=== PATIENT | male | born 1965 | race Caucasian/White ===

== ENCOUNTER 2019-02-04 07:19 | Emergency (ER) | payer BC, OTHER ==
[2019-02-04 07:26] VITALS: RESP 16
[2019-02-04] MEDS ORDERED: amLODIPine 5 MG TAB PO STA (08:04)
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
[2019-02-04 08:26] VITALS: TEMP 98
[2019-02-04 09:22] VITALS: BP 181/109; PULSE 61
== END 2019-02-04 09:45 | disposition home or self-care (01) ==
LOC: EC 07:19
DX: H83.09 Labyrinthitis, unspecified ear (principal); J01.90 Acute sinusitis, unspecified; H61.21 Impacted cerumen, right ear; H55.00 Unspecified nystagmus; I10 Essential (primary) hypertension; Z79.899 Other long term (current) drug therapy
CPT/HCPCS: 99284

== ENCOUNTER 2019-06-05 23:44 | Inpatient (IN) | payer BC, OTHER ==
[2019-06-06] MEDS ORDERED: NITROGLYCERIN SL TABS 0.4 MG TAB SUBLINGUAL STA (00:04)
[2019-06-06] MEDS ORDERED: HEPARIN SODIUM,PORCINE 5,000 UNIT/ML 1 ML VIAL IV PRN (00:04)
[2019-06-06] MEDS ORDERED: HEPARIN SODIUM,PORCINE 5,000 UNIT/ML 1 ML VIAL IV ONE (00:04)
[2019-06-06] MEDS ORDERED: ASPIRIN 81 MG PO STA (00:04)
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
[2019-06-06] MEDS ORDERED: HEPARIN SOD,PORK IN 0.45% NACL 25,000 UNIT in 0.45% NACL 1 250ML.BAG IV SCH (00:15)
[2019-06-06 00:17] LABS: Basophils # (A) 0.1 k/uL (0-0.2); Basophils % (A) 1 %; Eosinophils # (A) 0.1 k/uL (0-0.7); Eosinophils % (A) 1 %; HCT 45.5 % (39.0-53.0); HGB 15.4 gm/dL (13.0-17.5); Lymphocytes # (A) 2.6 k/uL (1.0-4.8); Lymphocytes % (A) 25 %; MCH 31.8 pg (25.0-35.0); MCHC 33.8 g/dL (31.0-37.0); MCV 94.1 fL (80.0-100.0); Mean Platelet Volume 7.7; Monocytes # (A) 0.8 k/uL (0-1.0); Monocytes % (A) 7 %; Neutrophils # (A) 6.6 k/uL (1.3-7.7); Neutrophils % (A) 63 %; Platelet Count 237 k/uL (150-450); RBC 4.83 m/uL (4.30-5.90); RDW 14.4 % (11.5-15.5); WBC 10.4 k/uL (3.8-10.6)
[2019-06-06 00:30] LABS: Albumin 4.2 g/dL (3.5-5.0); Calcium 9.5 mg/dL (8.4-10.2); Magnesium 2.1 mg/dL (1.6-2.3); Potassium 4.2 mmol/L (3.5-5.1); Total Bilirubin 0.6 mg/dL (0.2-1.3); Total Protein 6.9 g/dL (6.3-8.2)
[2019-06-06 00:33] LABS: D-Dimer <0.17 mg/L FEU (<0.60); INR 0.9 (<1.2); Partial Thromboplastin Time 24.8 sec (22.0-30.0); Prothrombin Time 9.6 sec (9.0-12.0)
[2019-06-06] MEDS ORDERED: NITROGLYCERIN-D5W PMX 50 MG in DEXTROSE/WATER 1 250ML.BAG IV ONE (00:39)
[2019-06-06] MEDS ORDERED: LOSARTAN 50 MG TAB PO STA ×2 (00:41→02:04)
[2019-06-06] MEDS ORDERED: METOPROLOL TARTRATE 25 MG TAB PO STA (00:41)
--- NOTE | 2019-06-06 00:49 | XR ---
EXAM: XR Chest, 1 View CLINICAL HISTORY: ITS.REASON XR Reason: Chest Pain TECHNIQUE: Frontal view of the chest. COMPARISON: Chest radiographs 11/28/2015. FINDINGS: Lungs: Unremarkable. No consolidation. Pleural space: Unremarkable. No pneumothorax. Heart: Unremarkable. No cardiomegaly. Mediastinum: Unremarkable. Bones/joints: Unremarkable. IMPRESSION: No acute cardiopulmonary abnormality.
[2019-06-06 01:48] LABS: Glucose,Whole Blood 110 mg/dL (75-99)
[2019-06-06] MEDS ORDERED: NITROGLYCERIN-D5W PMX 50 MG in DEXTROSE/WATER 1 250ML.BAG IV SCH (02:15)
[2019-06-06 02:42] VITALS: BMI 26.2
[2019-06-06] MEDS: SODIUM CHLORIDE 0.9% 1,000 ML IV SCH (05:18)
[2019-06-06 05:35] LABS: Basophils # (A) 0.1 k/uL (0-0.2); Basophils % (A) 1 %; Eosinophils # (A) 0.1 k/uL (0-0.7); Eosinophils % (A) 1 %; HCT 43.3 % (39.0-53.0); HGB 14.5 gm/dL (13.0-17.5); Lymphocytes % (A) 26 %; MCHC 33.6 g/dL (31.0-37.0); MCV 95.5 fL (80.0-100.0); Mean Platelet Volume 7.5; Monocytes # (A) 0.6 k/uL (0-1.0); Monocytes % (A) 5 %; Neutrophils # (A) 7.6 k/uL (1.3-7.7); Neutrophils % (A) 66 %; Platelet Count 226 k/uL (150-450); RBC 4.53 m/uL (4.30-5.90); RDW 14.3 % (11.5-15.5); WBC 11.5 k/uL (3.8-10.6)
[2019-06-06 05:45] LABS: African American GFR (CKD) >90 (>60 ml/min/1.73 sqM); Anion Gap 7 mmol/L; Blood Urea Nitrogen 16 mg/dL (9-20); Calcium 8.9 mg/dL (8.4-10.2); Carbon Dioxide 27 mmol/L (22-30); Chloride 106 mmol/L (98-107); Glucose 113 mg/dL (74-99); Magnesium 2.1 mg/dL (1.6-2.3); Non-African American GFR(CKD) 78 (>60 ml/min/1.73 sqM); Phosphorus 3.9 mg/dL (2.5-4.5); Potassium 4.1 mmol/L (3.5-5.1); Sodium 140 mmol/L (137-145)
[2019-06-06] MEDS ORDERED: LOSARTAN 50 MG TAB PO SCH (09:00)
[2019-06-06] MEDS ORDERED: ASPIRIN 81 MG PO SCH (09:00)
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
[2019-06-06 09:36] LABS: Cholesterol 134 mg/dL (<200); HDL Cholesterol 44 mg/dL (40-60); LDL Cholesterol,Calculated 70 mg/dL (0-99); Triglycerides 102 mg/dL (<150)
[2019-06-06] MEDS ORDERED: TRIAMTERENE-HCTZ 37.5-25MG 1 EACH CAP PO SCH (11:30)
[2019-06-06] MEDS: IPRATROPIUM-ALBUTEROL 3 ML NEB INHALATION SCH ×3 (11:32→20:17)
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
--- NOTE | 2019-06-06 15:00 | ECHOF ---
Referral Reason:chest pain MEASUREMENTS -------- HEIGHT: 200.7 cm WEIGHT: 80.7 kg BP: IVSd: 1.5 cm (0.6 - 1.1) LVIDd: 2.8 cm (3.9 - 5.3) LVPWd: 1.8 cm (0.6 - 1.1) IVSs: 2.0 cm LVIDs: 2.2 cm LVPWs: 2.1 cm RVIDd: 2.6 cm (< 3.3) LAESV Index (A-L): 23.93 ml/m Ao Diam: 3.4 cm (2.0 - 3.7) LA Diam: 2.7 cm (2.7 - 3.8) AV Cusp: 2.2 cm (1.5 - 2.6) EPSS: 0.4 cm MV E Andrea: 0.94 m/s MV DecT: 159 ms MV A Andrea: 0.65 m/s MV E/A Ratio: 1.44 RAP: 5.00 mmHg RVSP: 36.03 mmHg MV EF SLOPE: 93.52 mm/s (70 - 150) MV EXCURSION: 15.29 mm (> 18.000) FINDINGS -------- Sinus rhythm. This was a technically good study. The left ventricular size is normal. There is severe concentric left ventricular hypertrophy. Ove rall left ventricular systolic function is normal with, an EF between 55 - 60 %. The right ventricle is normal in size. The left atrial size is normal. Normal LA size by volume 22+/-6 ml/m2. The right atrial size is normal. Interatrial and interventricular septum intact. The aortic valve is trileaflet and appears structurally normal. The mitral valve is normal. The mitral valve leaflets are mildly thickened. Mild mitral annular c alcification present. Mild mitral regurgitation is present. Mild tricuspid regurgitation present. There is borderline pulmonary artery hypertension. The righ t ventricular systolic pressure, as measured by Doppler, is 36.03mmHg. There is no pulmonic regurgitation present. The aortic root size is normal. Normal inferior vena cava with normal inspiratory collapse consistent with estimated right atrial pre ssure of 5 mmHg. The flow patterns, measured by Doppler, appear normal. There is no pericardial effusion. CONCLUSIONS -------- 1. Sinus rhythm. 2. This was a technically good study. 3. The left ventricular size is normal. 4. There is severe concentric left ventricular hypertrophy. 5. Overall left ventricular systolic function is normal with, an EF between 55 - 60 %. 6. The right ventricle is normal in size. 7. The left atrial size is normal. 8. Normal LA size by volume 22+/-6 ml/m2. 9. The right atrial size is normal. 10. Interatrial and interventricular septum intact. 11. The aortic valve is trileaflet and appears structurally normal. 12. The mitral valve is normal. 13. The mitral valve leaflets are mildly thickened. 14. Mild mitral annular calcification present. 15. Mild mitral regurgitation is present. 16. Mild tricuspid regurgitation present. 17. There is borderline pulmonary artery hypertension. 18. The right ventricular systolic pressure, as measured by Doppler, is 36.03mmHg. 19. There is no pulmonic regurgitation present. 20. The aortic root size is normal. 21. Normal inferior vena cava with normal inspiratory collapse consistent with estimated right atrial pressure of 5 mmHg. 22. The flow patterns, measured by Doppler, appear normal. 23. There is no pericardial effusion. [employer]AIGHTENER: Jes Dunn RDCS
[2019-06-06] MEDS: NITROGLYCERIN SL TABS 0.4 MG TAB SUBLINGUAL PRN ×3 (15:12→20:59)
[2019-06-06 15:47] LABS: Amphetamine Screen,Urine Not Detected (NotDetected); Barbiturate Screen,Urine Not Detected (NotDetected); Benzodiazepines Screen,Urine Not Detected (NotDetected); Cocaine Screen,Urine Not Detected (NotDetected); Methadone Screen, Urine Not Detected (NotDetected); Opiate Screen,Urine Not Detected (NotDetected); Oxycodone Screen, Urine Not Detected (NotDetected); Phencyclidine Screen,Urine Not Detected (NotDetected); Tricyclic Antidepressant,Urine Not Detected (NotDetected); Urn Cannabinoid Scrn Detected (NotDetected)
[2019-06-06] MEDS: hydrALAZINE HCL 20 MG/ML 1 ML VIAL IVP PRN (21:10)
[2019-06-06 21:24] VITALS: RESP 18
[2019-06-06] MEDS ORDERED: MELATONIN 3 MG TABLET PO SCH (21:30)
[2019-06-07] MEDS: hydrALAZINE HCL 20 MG/ML 1 ML VIAL IVP PRN (04:45)
[2019-06-07 04:51] VITALS: BP 178/101; PULSE 85; TEMP 98.5
[2019-06-07] MEDS: SODIUM CHLORIDE 0.9% 1,000 ML IV SCH (04:52)
[2019-06-07 06:21] LABS: Basophils # (A) 0.1 k/uL (0-0.2); Basophils % (A) 1 %; Eosinophils # (A) 0.1 k/uL (0-0.7); Eosinophils % (A) 1 %; HCT 51.7 % (39.0-53.0); HGB 17.3 gm/dL (13.0-17.5); Lymphocytes % (A) 23 %; MCH 31.7 pg (25.0-35.0); MCHC 33.5 g/dL (31.0-37.0); MCV 94.7 fL (80.0-100.0); Mean Platelet Volume 7.2; Monocytes # (A) 0.7 k/uL (0-1.0); Monocytes % (A) 8 %; Neutrophils # (A) 5.8 k/uL (1.3-7.7); Neutrophils % (A) 65 %; Platelet Count 257 k/uL (150-450); RBC 5.46 m/uL (4.30-5.90); RDW 12.5 % (11.5-15.5); WBC 8.9 k/uL (3.8-10.6)
[2019-06-07 06:38] LABS: Calcium 9.8 mg/dL (8.4-10.2); Potassium 4.4 mmol/L (3.5-5.1)
[2019-06-07] MEDS ORDERED: ASPIRIN 325 MG TAB PO SCH (09:00)
[2019-06-07 11:59] LABS: Hemoglobin A1C 5.6 % (4.0-6.0)
== END 2019-06-07 08:04 | disposition left against medical advice (07) | DRG 305 ==
LOC: EC 23:44 → 2SICU 06-06 00:52 → 3SCARD 06-06 16:42
PROVIDERS: ADMIT Hospitalist; ATTEND Hospitalist
DX: I16.0 Hypertensive urgency (principal); J44.1 Chronic obstructive pulmonary disease with (acute) exacerbation; F32.9 Major depressive disorder, single episode, unspecified; F90.9 Attention-deficit hyperactivity disorder, unspecified type; F17.210 Nicotine dependence, cigarettes, uncomplicated; E66.9 Obesity, unspecified; I10 Essential (primary) hypertension; Z77.090 Contact with and (suspected) exposure to asbestos; Z68.26 Body mass index [BMI] 26.0-26.9, adult; Z71.6 Tobacco abuse counseling; Z86.69 Personal history of other diseases of the nervous system and sense organs; Z91.14 Patient's other noncompliance with medication regimen; Z91.11 Patient's noncompliance with dietary regimen; Z86.14 Personal history of Methicillin resistant Staphylococcus aureus infection; Z79.899 Other long term (current) drug therapy
CPT/HCPCS: 36415; 71045; 80048; 80053; 80061; 80306; 82533; 83036; 83735; 84100; 84484; 85025; 85379; 85610; 85730; 93005; 93306; 94640; 96365; 96376; 99291

== ENCOUNTER 2019-12-19 05:20 | Emergency (ER) | payer BC ==
[2019-12-19 05:28] VITALS: TEMP 97.3
[2019-12-19] MEDS ORDERED: KETOROLAC 30 MG/ML 1 ML VIAL IVP STA (05:41)
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
[2019-12-19] MEDS ORDERED: ONDANSETRON 4 MG/2 ML VIAL IVP STA (05:46)
[2019-12-19] MEDS ORDERED: MORPHINE SULFATE 4 MG/ML SYRINGE IVP STA (05:47)
[2019-12-19 05:54] LABS: Appearance,Urine Cloudy (Clear); Bilirubin,Urine Negative (Negative); Blood,Urine Moderate (Negative); Budding Yeast,Urine Few /hpf; Color,Urine Light Yellow; Glucose,Urine (UA) Negative (Negative); Ketones,Urine Negative (Negative); Leukocyte Esterase,Urine Negative (Negative); Mucus,Urine Rare /hpf; Nitrite,Urine Negative (Negative); Protein,Urine Negative (Negative); RBC,Urine 139 /hpf (0-5); Urobilinogen,Urine <2.0 mg/dL (<2.0); WBC,Urine 2 /hpf (0-5)
[2019-12-19 06:11] VITALS: RESP 18
[2019-12-19 06:14] LABS: Calcium 9.1 mg/dL (8.4-10.2); Total Bilirubin 0.9 mg/dL (0.2-1.3)
[2019-12-19 06:16] LABS: Basophils % (A) 0 %; Eosinophils # (A) 0.1 k/uL (0-0.7); Eosinophils % (A) 1 %; HCT 45.8 % (39.0-53.0); HGB 15.5 gm/dL (13.0-17.5); Lymphocytes # (A) 2.6 k/uL (1.0-4.8); Lymphocytes % (A) 27 %; MCH 30.9 pg (25.0-35.0); MCHC 33.9 g/dL (31.0-37.0); MCV 91.4 fL (80.0-100.0); Mean Platelet Volume 7.9; Monocytes # (A) 0.6 k/uL (0-1.0); Monocytes % (A) 6 %; Neutrophils # (A) 6.1 k/uL (1.3-7.7); Neutrophils % (A) 63 %; Platelet Count 238 k/uL (150-450); RBC 5.02 m/uL (4.30-5.90); RDW 12.2 % (11.5-15.5); WBC 9.8 k/uL (3.8-10.6)
[2019-12-19 06:19] LABS: Albumin 4.4 g/dL (3.5-5.0); Potassium 4.6 mmol/L (3.5-5.1); Total Protein 7.3 g/dL (6.3-8.2)
[2019-12-19 06:34] VITALS: PULSE 68
[2019-12-19 06:47] VITALS: BP 154/108
== END 2019-12-19 07:00 | disposition home or self-care (01) ==
LOC: EC 05:20
DX: R31.0 Gross hematuria (principal); R10.2 Pelvic and perineal pain; R35.0 Frequency of micturition; R39.15 Urgency of urination; R11.2 Nausea with vomiting, unspecified; F17.200 Nicotine dependence, unspecified, uncomplicated
CPT/HCPCS: 36415; 80053; 85025; 81001; 99283; 96374; 96375 ×2; J2270; J2405; J1885

== ENCOUNTER → 2023-03-19 | Outpatient (CLI) | payer OTHER ==
--- NOTE | 2023-03-19 15:06 | US ---
EXAMINATION TYPE: US scrotum with doppler. TECHNIQUE: Grayscale and color Doppler Duplex imaging performed of the scrotum. DATE OF EXAM: 03/19/2023 COMPARISON: NONE CLINICAL INDICATION: Male, 57 years old with history of S30.853A SUPERFICIAL FOREIGN BODY OF SCROTUM AND T; Right groin/lateral to teste palpable. No pain. EXAM MEASUREMENTS: TESTICLES: Right Testicle: 4.0 x 4.3 x 2.5 cm Left Testicle: 3.8 x 3.1 x 2.5 cm EPIDIDYMIS HEAD: Right Epididymis: 0.8 x 0.9 x 1.0 cm Left Epididymis: 0.9 x 0.8 x 1.3 cm with epididymal head cysts measuring up to 9 mm. Doppler performed to assess for testicular vascularity; good bilateral color flow and waveforms are s een. There is no evidence of testicular torsion. Presence of hydroceles: Small bilaterally. Patients palpable area seen. Superficial hypoechoic nonvascular lesion and just deep to the skin art face measuring = 0.8 x 0.8 x 0.3 cm. IMPRESSION: 1. Palpable area along the right side of the scrotum corresponds to a vague 8 mm hypoechoic lesion at and just deep to the skin layer. Possible cutaneous lesion or granuloma. It does not appear to local ize to the epididymis, testicle, or deeper structures. Recommend clinical follow-up. Repeat ultrasoun d if any continued growth. 2. No evidence for testicular torsion or epididymoorchitis. Small bilateral hydroceles.
== END | disposition home or self-care (01) ==
LOC: RADUSWWP 08:18
DX: S30.853A Superficial foreign body of scrotum and testes, initial encounter (principal); N43.3 Hydrocele, unspecified
CPT/HCPCS: 76870; 93975

== ENCOUNTER → 2023-04-30 | Outpatient (CLI) | payer OTHER ==
--- NOTE | 2023-04-30 21:04 | CT ---
EXAMINATION TYPE: CT chest wo con CT DLP: 375.8 mGycm, Automated exposure control for dose reduction was used. DATE OF EXAM: 04/30/2023 5:33 PM COMPARISON: Chest radiograph 06/06/20202018. CLINICAL INDICATION:Male, 57 years old with history of R91.8; PHH, Unspecified abnormality on lung. TECHNIQUE: Multiple axial images were obtained through the chest. Sagittal and coronal reformats were created for review. Contrast used: mL of (None if empty) Oral contrast used: (None if empty) FINDINGS: LUNGS/ PLEURA: Mild paraseptal emphysema changes most pronounced in the lung apices. There is no evid ence of focal consolidation, pneumothorax or pleural effusion. No suspicious pulmonary nodules are id entified. No evidence for honeycombing. No evidence for air trapping. AIRWAY: No bronchiectasis or bronchial wall thickening. HEART: Size within normal limits. Mild coronary artery calcifications. MEDIASTINUM: No gross evidence of adenopathy. VASCULATURE: No aortic aneurysm. MUSCULOSKELETAL: No acute osseous abnormalities SOFT TISSUES/LYMPH NODES: Unremarkable. LOWER NECK: No significant findings. UPPER ABDOMEN: No significant findings. IMPRESSION: 1. No specific abnormality of the lung was specified. 2. No evidence for acute process. 3. No lymphadenopathy. 4. No pulmonary mass. 5. No suspicious pulmonary nodule. 6. Mild emphysema. 7. Mild coronary artery calcifications.
== END | disposition home or self-care (01) ==
LOC: RADCTMAIN 16:39
DX: J43.9 Emphysema, unspecified (principal); I25.10 Atherosclerotic heart disease of native coronary artery without angina pectoris; R91.8 Other nonspecific abnormal finding of lung field
CPT/HCPCS: 71250

== ENCOUNTER → 2023-05-19 | Outpatient (CLI) | payer OTHER ==
--- NOTE | 2023-05-20 10:46 | CT ---
EXAMINATION TYPE: CT chest w con CT DLP: 371.9 mGycm, Automated exposure control for dose reduction was used. DATE OF EXAM: 05/19/2023 5:05 PM COMPARISON: CT chest 04/30/2023 CLINICAL INDICATION:Male, 57 years old with history of R91.8 OTHER NONSPECIFIC ABNORMAL FINDING OF REED NG F; PHH, left lung nodule f/u TECHNIQUE: Multiple axial images were obtained through the chest following the administration of 100 cc of Isovue 300. . MIP was performed. Coronal and sagittal reformats reviewed. FINDINGS: LUNGS/ PLEURA: No pleural effusion, pneumothorax, focal consolidation. Minimal paraseptal emphysemato us changes in the bilateral upper lobes. Stable 2 mm right upper lobe pulmonary nodule (series 4, im age 21). No new or enlarging pulmonary nodules. AIRWAY: Patent and unremarkable.. HEART: Size within normal limits. No pericardial effusion. Mild coronary artery calcifications. MEDIASTINUM: No evidence of adenopathy. VASCULATURE: No aortic aneurysm. MUSCULOSKELETAL: No acute osseous abnormalities SOFT TISSUES/LYMPH NODES: Unremarkable. LOWER NECK: No significant findings. UPPER ABDOMEN: No significant findings. IMPRESSION: 1. No acute thoracic process. 2. Stable right upper lobe 2 mm pulmonary nodule. No new or enlarging pulmonary nodules. 3. Minimal emphysematous changes.
== END | disposition home or self-care (01) ==
LOC: RADCTMAIN 16:05
DX: J43.9 Emphysema, unspecified (principal); R91.8 Other nonspecific abnormal finding of lung field; R91.1 Solitary pulmonary nodule
CPT/HCPCS: 71260; Q9967

== ENCOUNTER 2023-12-18 12:41 | Inpatient (IN) | payer OTHER ==
[~2023-12-18 12:41] MED LIST: levETIRAcetam IV 500 MG/5 ML VIAL IVP SCH
[2023-12-18] MEDS ORDERED: LORazepam 2 MG/ML INJ IV PRN ×3 (12:46)
[2023-12-18] MEDS: SODIUM CHLORIDE 0.9% 1,000 ML IV STA ×3 (13:00→17:42)
[2023-12-18] MEDS: SODIUM CHLORIDE 0.9% 500 ML 500 ML IV STA (13:00)
[2023-12-18] MEDS: THIAMINE 100 MG/ML 2 ML VIAL IM STA (13:14)
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
[2023-12-18 13:30] LABS: ALT 77 U/L (4-49); AST 40 U/L (17-59); African American GFR (CKD) 88 (>60 ml/min/1.73 sqM); Albumin 5.3 g/dL (3.5-5.0); Alcohol <10 mg/dL; Alkaline Phosphatase 90 U/L (38-126); Anion Gap 30 mmol/L; Blood Urea Nitrogen 14 mg/dL (9-20); Calcium 9.5 mg/dL (8.4-10.2); Chloride 108 mmol/L (98-107); Glucose 192 mg/dL (74-99); Lipase 251 U/L (23-300); Non-African American GFR(CKD) 76 (>60 ml/min/1.73 sqM); Phosphorus 2.4 mg/dL (2.5-4.5); Potassium 3.5 mmol/L (3.5-5.1); Sodium 147 mmol/L (137-145); Total Bilirubin 0.7 mg/dL (0.2-1.3); Total Protein 8.2 g/dL (6.3-8.2)
[2023-12-18 13:40] LABS: Basophils # (A) 0.1 k/uL (0-0.2); Basophils % (A) 0 %; Eosinophils % (A) 0 %; HCT 47.7 % (39.0-53.0); HGB 15.4 gm/dL (13.0-17.5); Lymphocytes # (A) 2.8 k/uL (1.0-4.8); Lymphocytes % (A) 15 %; MCHC 32.2 g/dL (31.0-37.0); MCV 96.2 fL (80.0-100.0); Mean Platelet Volume 8.7; Monocytes # (A) 0.8 k/uL (0-1.0); Monocytes % (A) 4 %; Neutrophils # (A) 14.4 k/uL (1.3-7.7); Neutrophils % (A) 79 %; Platelet Count 279 k/uL (150-450); RBC 4.96 m/uL (4.30-5.90); RDW 12.2 % (11.5-15.5); WBC 18.3 k/uL (3.8-10.6)
[2023-12-18 13:41] LABS: Carbon Dioxide 9 mmol/L (22-30)
[2023-12-18] MEDS: levETIRAcetam IV 2,000 MG in SODIUM CHLORIDE 0.9% 250 ML IVPB ONE (14:25)
[2023-12-18] MEDS: LORazepam 2 MG/ML INJ IV STA (14:29)
--- NOTE | 2023-12-18 16:19 | CT ---
EXAMINATION TYPE: CT brain wo con DATE OF EXAM: 12/18/2023 COMPARISON: 11/28/2015 INDICATION: ams DLP: 1138.4 mGycm, Automated exposure control for dose reduction was used. CONTRAST: None CT of the brain is performed utilizing 3 mm thick sections through the posterior fossa and 3 mm thick sections through the remaining calvarium. Study is performed within 24 hours of arrival to the hosp ital. No abnormal hyperdensity is present to suggest an acute intracranial hemorrhage. No mass lesion is evident. No acute infarcts are evident. Ventricles and sulci are appropriate for the patient age. Paranasal sinuses and mastoid air cells within the [id number] are clear. IMPRESSION: 1. No acute intracranial process. Follow-up MRI can be performed as clinically indicated.
[2023-12-18] MEDS ORDERED: NALOXONE 0.4 MG/ML 1 ML VIAL IV PRN (17:41)
[2023-12-18] MEDS ORDERED: MORPHINE SULFATE 4 MG/ML SYRINGE IV PRN (17:41)
[2023-12-18] MEDS: SODIUM CHLORIDE 0.9% 1,000 ML IV SCH (17:59)
[2023-12-18 19:33] LABS: VBG PH 7.35 (7.31-7.41)
[2023-12-18] MEDS: ONDANSETRON 4 MG/2 ML VIAL IVP PRN (20:10)
[2023-12-18] MEDS ORDERED: levETIRAcetam IV 500 MG/5 ML VIAL IVP SCH (21:00)
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
[2023-12-18] MEDS: levETIRAcetam IV 500 MG/5 ML VIAL IVP SCH (23:43)
[2023-12-19 04:53] LABS: Urine Alcohol Negative (Negative); Urine Barbiturate Negative (Negative); Urine Cocaine Negative (Negative); Urine Methadone Negative (Negative); Urine Opiates Negative (Negative); Urine Phencyclidine Negative (Negative)
[2023-12-19] MEDS: ASPIRIN 81 MG PO SCH (08:40)
[2023-12-19] MEDS: THIAMINE 100 MG TAB PO SCH (08:40)
[2023-12-19] MEDS: amLODIPine 10 MG TAB PO SCH (08:41)
[2023-12-19] MEDS: LOSARTAN 50 MG TAB PO SCH (08:41)
[2023-12-19] MEDS: METOPROLOL TARTRATE 25 MG TAB PO SCH (08:41)
[2023-12-19] MEDS: ENOXAPARIN 40 MG/0.4 ML SYRINGE SQ SCH (08:46)
[2023-12-19 08:47] LABS: ALT 24 U/L (4-49); AST 43 U/L (17-59); African American GFR (CKD) 36 (>60 ml/min/1.73 sqM); Albumin 3.6 g/dL (3.5-5.0); Alkaline Phosphatase 71 U/L (38-126); Anion Gap 6 mmol/L; Blood Urea Nitrogen 23 mg/dL (9-20); Calcium 8.8 mg/dL (8.4-10.2); Carbon Dioxide 21 mmol/L (22-30); Chloride 115 mmol/L (98-107); Glucose 117 mg/dL (74-99); Magnesium 2.4 mg/dL (1.6-2.3); Non-African American GFR(CKD) 31 (>60 ml/min/1.73 sqM); Phosphorus 3.3 mg/dL (2.5-4.5); Potassium 3.7 mmol/L (3.5-5.1); Sodium 142 mmol/L (137-145); Total Bilirubin 0.7 mg/dL (0.2-1.3)
[2023-12-19 09:01] LABS: Basophils % (A) 0 %; Eosinophils % (A) 0 %; HCT 38.6 % (39.0-53.0); Lymphocytes # (A) 1.1 k/uL (1.0-4.8); Lymphocytes % (A) 10 %; MCH 30.4 pg (25.0-35.0); MCHC 33.6 g/dL (31.0-37.0); Mean Platelet Volume 8.1; Monocytes # (A) 1.1 k/uL (0-1.0); Monocytes % (A) 10 %; Neutrophils # (A) 8.4 k/uL (1.3-7.7); Neutrophils % (A) 77 %; Platelet Count 187 k/uL (150-450); RBC 4.27 m/uL (4.30-5.90); RDW 12.4 % (11.5-15.5); WBC 10.9 k/uL (3.8-10.6)
[2023-12-19 09:06] LABS: MCV 90.6 fL (80.0-100.0)
[2023-12-19] MEDS: hydrOXYzine HCL 25 MG TAB PO SCH (09:06)
[2023-12-19] MEDS ORDERED: LORazepam 2 MG/ML INJ IV PRN (12:29)
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
--- NOTE | 2023-12-19 14:06 | P.PN ---
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 She immediately activated EMS who upon arrival noted the patient to be having multiple seizure-like episodes. Patient has no prior history of seizure and reports that he has been sober from alcohol use for the past 6 months. The patient subsequently had another seizure episode while in the emergency room for which he was given Ativan IV push. In the emergency room a CT brain was unremarkable with EKG showing sinus rhythm at [address]/T wave changes noted as reviewed by me. Laboratory evaluation was remarkable for WBC count 18.3, sodium 147, chloride 108, CO2 9, creatinine 1.08, with serum alcohol level less than 10. Patient was started on Keppra 500 mg IV BID and admitted for further workup and observation. 12/18 Patient was seen and examined with Dr. Giordano. Feeling tired but no other compliants. at bedside. Plans to obtain EEG and observe overnight. 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 and patient verbalized understanding. CBC WBC 10.9 RBC 4.27 Hct 38.6. BMP Cl 115, bicarb 21, BUN 23, Cr 2.25, glu 117. Mag 2.4. Vital signs reviewed General: non toxic, no distress, appears at stated age, normal weight Derm: no unusual rashes/lesions, warm Head: atraumatic, normocephalic, symmetric Eyes: EOMI, no lid lag, anicteric sclera ENT: Nose and ears atraumatic Neck: No cervical lymphadenopathy, trachea midline, supple Cardiovascular: S1S2 reg, no murmur Lungs: CTA bilateral, no rhonchi, no rales, no accessory muscle use Abdominal: soft, nontender to palpation, no guarding Ext: muscle strength 4 out of 5 in all 4 extremities grossly, no gross muscle atrophy, no contractures, Neuro: no gross focal neuro deficits Psych: Alert, oriented to self and place, not oriented to time Based on my assessment of this patient, this patient meets a high complexity level of care. Patient has an acute diagnosis of acute hypoxic respiratory failure secondary to subacute lung disease that poses a threat to life or bodily function. New onset seizure, with history of alcohol abuse (reports being sober for the past 6 months): Keppra 500 mg IV BID. CIWA protocol with Ativan PRN. Fall and seizure precautions. EEG pending. Neurology on board. Acute kidney injury: Check CPK levels. Obtain Renal bladder US. High anion gap metabolic acidosis, likely due to multiple seizures: Improving with IV hydration. Chronic conditions: History of CVA, hypertension CODE STATUS: FULL CODE DVT Prophylaxis: Lovenox GI Prophylaxis: Designated medical POA if patient is not able to make medical decisions for themselves: I have reviewed the following beauty consultant notes: Neuro. I have reviewed the results of the following tests: CBC, BMP. I have ordered the following tests: CPK. BMP. Renal bladder US I have discussed the care of this patient with the following independent historian: . I have independently interpreted the following test below: I have discussed the management of this patient with the following physician: Dr. Giordano. Objective - Vital Signs Vital signs: Vital Signs Temp 98.9 F 12/18/23 12:57 Pulse 77 12/19/23 08:44 Resp 18 12/19/23 08:44 BP 151/84 12/19/23 08:44 Pulse Ox 99 12/19/23 08:44 FiO2 Intake & Output 12/18/23 12/19/23 12/19/23 18:59 06:59 18:59 Weight 104.326 kg - Labs CBC & Chem 7: 12/19/23 07:56 12/19/23 07:56 Labs: Abnormal Lab Results - Last 24 Hours (Table) 12/18/23 12/19/23 12/19/23 Range/Units 19:48 07:56 07:56 WBC 10.9 H (3.8-10.6) k/uL RBC 4.27 L (4.30-5.90) m/uL Hct 38.6 L (39.0-53.0) % Neutrophils # 8.4 H (1.3-7.7) k/uL Monocytes # 1.1 H (0-1.0) k/uL Chloride 115 H (98-107) mmol/L Carbon Dioxide 21 L (22-30) mmol/L BUN 23 H (9-20) mg/dL Creatinine 2.25 H (0.66-1.25) mg/dL Glucose 117 H (74-99) mg/dL Magnesium 2.4 H (1.6-2.3) mg/dL Total Protein 6.0 L (6.3-8.2) g/dL U Cannabinoids Screen Positive A (Negative)
[2023-12-19] MEDS: HYDROcodone/APAP 10-325MG 1 EACH TAB PO PRN (14:35)
--- NOTE | 2023-12-19 14:52 | US ---
EXAMINATION TYPE: US renals and bladder DATE OF EXAM: 12/19/2023 COMPARISON: NONE CLINICAL INDICATION: Male, 58 years old with history of MAGED; MAGED EXAM MEASUREMENTS: Right Kidney: 11.6 x 3.7 x 4.6 cm Left Kidney: 11.2 x 3.6 x 5.4 cm Right Kidney: No hydronephrosis or masses seen Left Kidney: No hydronephrosis or masses seen Bladder: wnl IMPRESSION: 1. Normal renal ultrasound
[2023-12-19 16:26] LABS: Glucose,Whole Blood 136 mg/dL (70-110)
[2023-12-19] MEDS: SERTRALINE 50 MG TAB PO SCH (20:36)
[2023-12-19] MEDS: ATORVASTATIN 40 MG TAB PO SCH (20:36)
[2023-12-19] MEDS: levETIRAcetam 500 MG TAB PO SCH (20:36)
--- NOTE | 2023-12-20 02:41 | EEG ---
ELECTROENCEPHALOGRAM REPORT CLINICAL HISTORY: This is a 58-year-old gentleman who presented to the emergency department because of seizure-like activity. The patient had a total of 3 seizure activity in total yesterday. The video EEG is obtained to evaluate for seizure epileptiform activity. RELEVANT MEDICATIONS: Keppra, Ativan, Valium. EEG TYPE: A routine 21-channel EEG with video EEG using the 10/20 electrode placement system. DESCRIPTION: Wakefulness and drowsiness are obtained. During awake state, the posterior-dominant rhythm consists of [id number] voltage 8.5 hertz activity that is well modulated, well sustained. There is no physiological stage 2 sleep architecture. There is no focal slowing. Interictal and ictal is none. ACTIVATION PROCEDURE: Photic stimulation did not evoke a posterior driving response. There is no abnormality during the photic stimulation. Hyperventilation is not performed. CLINICAL INTERPRETATION: This is a normal routine EEG. There is no focal slowing, epileptiform discharge, or seizure on the EEG. A normal routine EEG does not rule out underlying epilepsy. Clinical correlation is recommended. MMMIGUELITO / IJN: [id number] /
[2023-12-20 08:08] LABS: Basophils % (A) 0 %; Eosinophils # (A) 0.1 k/uL (0-0.7); Eosinophils % (A) 1 %; HCT 38.7 % (39.0-53.0); HGB 12.8 gm/dL (13.0-17.5); Lymphocytes # (A) 1.6 k/uL (1.0-4.8); Lymphocytes % (A) 16 %; MCH 30.2 pg (25.0-35.0); MCHC 33.1 g/dL (31.0-37.0); MCV 91.2 fL (80.0-100.0); Monocytes # (A) 0.8 k/uL (0-1.0); Monocytes % (A) 8 %; Neutrophils # (A) 7.4 k/uL (1.3-7.7); Neutrophils % (A) 73 %; Platelet Count 187 k/uL (150-450); RBC 4.24 m/uL (4.30-5.90); RDW 12.6 % (11.5-15.5); WBC 10.1 k/uL (3.8-10.6)
[2023-12-20 08:21] LABS: Potassium 3.5 mmol/L (3.5-5.1)
[2023-12-20 08:22] LABS: ALT 26 U/L (4-49); AST 67 U/L (17-59); African American GFR (CKD) 33 (>60 ml/min/1.73 sqM); Albumin 3.7 g/dL (3.5-5.0); Alkaline Phosphatase 64 U/L (38-126); Anion Gap 5 mmol/L; Blood Urea Nitrogen 26 mg/dL (9-20); Calcium 8.9 mg/dL (8.4-10.2); Carbon Dioxide 24 mmol/L (22-30); Chloride 111 mmol/L (98-107); Glucose 117 mg/dL (74-99); Non-African American GFR(CKD) 28 (>60 ml/min/1.73 sqM); Sodium 140 mmol/L (137-145); Total Bilirubin 0.8 mg/dL (0.2-1.3); Total Protein 6.2 g/dL (6.3-8.2)
[2023-12-20] MEDS: SODIUM CHLORIDE 0.9% 1,000 ML IV SCH (11:03)
--- NOTE | 2023-12-20 11:42 | P.PN ---
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 She immediately activated EMS who upon arrival noted the patient to be having multiple seizure-like episodes. Patient has no prior history of seizure and reports that he has been sober from alcohol use for the past 6 months. The patient subsequently had another seizure episode while in the emergency room for which he was given Ativan IV push. In the emergency room a CT brain was unremarkable with EKG showing sinus rhythm at [address]/T wave changes noted as reviewed by me. Laboratory evaluation was remarkable for WBC count 18.3, sodium 147, chloride 108, CO2 9, creatinine 1.08, with serum alcohol level less than 10. Patient was started on Keppra 500 mg IV BID and admitted for further workup and observation. 12/18 Patient was seen and examined with Dr. Giordano. Feeling tired but no other compliants. at bedside. Plans to obtain EEG and observe overnight. 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 and patient verbalized understanding. CBC WBC 10.9 RBC 4.27 Hct 38.6. BMP Cl 115, bicarb 21, BUN 23, Cr 2.25, glu 117. Mag 2.4. 12/19 Patient was seen and examined. No further seizures. reports poor oral intake. CBC Hg 12.8 Hct 38.7. BMP Cl 111, BUN 26, Cr 2.47, glu 117, AST 67, T. protein 6.2. Renal US no obstruction. CPK 426. Vital signs reviewed General: non toxic, no distress, appears at stated age, normal weight Derm: no unusual rashes/lesions, warm Head: atraumatic, normocephalic, symmetric Eyes: EOMI, no lid lag, anicteric sclera ENT: Nose and ears atraumatic Neck: No cervical lymphadenopathy, trachea midline, supple Cardiovascular: good distal perfusion in all 4 extremities Lungs: breathing comfortably, no accessory muscle use Ext: muscle strength 4 out of 5 in all 4 extremities grossly, no gross muscle atrophy, no contractures, Neuro: no gross focal neuro deficits Psych: Alert, oriented to self and place, not oriented to time Based on my assessment of this patient, this patient meets a high complexity level of care. Patient has an acute diagnosis of acute hypoxic respiratory failure secondary to subacute lung disease that poses a threat to life or bodily function. New onset seizure, with history of alcohol abuse (reports being sober for the past 6 months): Keppra 500 mg IV BID. CIWA protocol with Ativan PRN. Fall and seizure precautions. EEG pending. Neurology on board. Acute kidney injury: CPK mildly elevated. No obstruction on Renal bladder US. Ethylene glycol negative. Start NS at 130 cc/hr. High anion gap metabolic acidosis, likely due to multiple seizures: Improving with IV hydration. Ethylenel glycol, salicylates, lactic acid negative. Chronic conditions: History of CVA, hypertension CODE STATUS: FULL CODE DVT Prophylaxis: Lovenox GI Prophylaxis: Designated medical POA if patient is not able to make medical decisions for themselves: I have reviewed the following documentation consultant notes: Neuro. I have reviewed the results of the following tests: CBC, BMP, renal bladder US, CPK I have ordered the following tests: BMP I have discussed the care of this patient with the following independent historian: . I have independently interpreted the following test below: I have discussed the management of this patient with the following physician: Dr. Giordano. Objective - Vital Signs Vital signs: Vital Signs Temp 98.1 F 12/20/23 08:00 Pulse 61 12/20/23 08:00 Resp 16 12/20/23 08:00 BP 149/92 12/20/23 08:00 Pulse Ox 96 12/20/23 08:00 FiO2 Intake & Output 12/19/23 12/20/23 12/20/23 18:59 06:59 18:59 Intake Total 540 Balance 540 Weight 104.326 kg Intake: Oral 540 Other: Voiding Method Toilet Toilet Toilet Urinal Urinal Urinal # Voids 1 - Labs CBC & Chem 7: 12/20/23 07:42 12/20/23 07:42 Labs: Abnormal Lab Results - Last 24 Hours (Table) 12/19/23 12/19/23 12/20/23 Range/Units 07:56 16:25 07:42 RBC 4.24 L (4.30-5.90) m/uL Hgb 12.8 L (13.0-17.5) gm/dL Hct 38.7 L (39.0-53.0) % Chloride (98-107) mmol/L BUN (9-20) mg/dL Creatinine (0.66-1.25) mg/dL Glucose (74-99) mg/dL POC Glucose (mg/dL) 136 H (70-110) mg/dL AST (17-59) U/L Creatine Kinase 426 H (55-170) U/L Total Protein (6.3-8.2) g/dL 12/20/23 Range/Units 07:42 RBC (4.30-5.90) m/uL Hgb (13.0-17.5) gm/dL Hct (39.0-53.0) % Chloride 111 H (98-107) mmol/L BUN 26 H (9-20) mg/dL Creatinine 2.47 H (0.66-1.25) mg/dL Glucose 117 H (74-99) mg/dL POC Glucose (mg/dL) (70-110) mg/dL AST 67 H (17-59) U/L Creatine Kinase (55-170) U/L Total Protein 6.2 L (6.3-8.2) g/dL
--- NOTE | 2023-12-20 12:48 | P.PN ---
Subjective Progress Note Date: 12/20/23 I am following-up with patient and no further seizures. No new neurological issues. No side-effects from Keppra. Objective - Vital Signs Vital signs: Vital Signs Temp 98.1 F 12/20/23 08:00 Pulse 60 12/20/23 12:00 Resp 16 12/20/23 12:00 BP 151/80 12/20/23 12:00 Pulse Ox 96 12/20/23 12:00 FiO2 Intake & Output 12/19/23 12/20/23 12/20/23 18:59 06:59 18:59 Intake Total 540 Balance 540 Weight 104.326 kg Intake: Oral 540 Other: Voiding Method Toilet Toilet Toilet Urinal Urinal Urinal # Voids 1 - Exam Workup during his hospital visit consisted of: He is afebrile. Initial white blood cells 18.3K and the the repeated one tablet today is 10.9. Sodium is 147, carbon dioxide is 9, glucose is 192, phosphorus is 2.4, magnesium 2.0, AST is 48 ALT 77 Plasma lactic acid vein is 1.0 Patient repeated the phosphorus 3.3. Repeated carbon dioxide is 21. And the sodium has improved. Urine drug screen is positive for cannabinoids. Urine alcohol was less than 10. CT of the head is reported as no acute intracranial process appear follow-up MRI can be performance as clinically indicated. I personally reviewed the CT of the head and the patient does not have any acute or subacute process. Patient does have right occipital encephalomalacia. Routine EEG: Is normal. - Labs CBC & Chem 7: 12/20/23 07:42 12/20/23 07:42 Labs: Abnormal Lab Results - Last 24 Hours (Table) 12/19/23 12/19/23 12/20/23 Range/Units 07:56 16:25 07:42 RBC 4.24 L (4.30-5.90) m/uL Hgb 12.8 L (13.0-17.5) gm/dL Hct 38.7 L (39.0-53.0) % Chloride (98-107) mmol/L BUN (9-20) mg/dL Creatinine (0.66-1.25) mg/dL Glucose (74-99) mg/dL POC Glucose (mg/dL) 136 H (70-110) mg/dL AST (17-59) U/L Creatine Kinase 426 H (55-170) U/L Total Protein (6.3-8.2) g/dL 12/20/23 Range/Units 07:42 RBC (4.30-5.90) m/uL Hgb (13.0-17.5) gm/dL Hct (39.0-53.0) % Chloride 111 H (98-107) mmol/L BUN 26 H (9-20) mg/dL Creatinine 2.47 H (0.66-1.25) mg/dL Glucose 117 H (74-99) mg/dL POC Glucose (mg/dL) (70-110) mg/dL AST 67 H (17-59) U/L Creatine Kinase (55-170) U/L Total Protein 6.2 L (6.3-8.2) g/dL Assessment and Plan Assessment: This is a 58-year-old gentleman with history of stroke in January 2023 with residu al visual armendariz deficit, former alcohol use and stopped and as well January 2023 who presents because of a seizure at home. It seems he had 2 additional seizures 1 and EMS and the other one while in the ED. At home the patient the had the drooling, was unresponsive, was morning and episode lasted for 15 minutes. Seems well in the ED he had a tonic-clonic seizure-like activity lasting less than 1 minute with a tongue bite. New onset seizure and patient was in status epilepticus (has three seizure yesterday). One of the causes of new onset seizure could be due to his old stroke---no further seizures. 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 Routine EEG is normal. Consider MRI Brain as outpatient seizure protocol Seizure precautions seizure pads Placed patient on Ativan 1 mg every 4 hours when necessary for seizures Per the [facility] because of the seizures, to avoid driving for 6 month until seizure-free, avoid heights, avoids swimming unassisted or using heavy machinery. This was notified to the patient and his was at bedside. Continue his home dose of aspirin 81 mg, Lipitor former and daily at bedtime We'll defer the rest of the medical management the primary team Upon discharge the patient needs to follow-up with his neurologist as an outpatient (follows-up at [facility]) with 1-2 weeks. The plan is discussed with patient, his and primary attending. There is no further neurological work-up. Will sign off. Please reconsult if needed. Time with Patient: Less than 30
[2023-12-21 07:37] LABS: Appearance,Urine Clear (Clear); Bilirubin,Urine Negative (Negative); Blood,Urine Small (Negative); Color,Urine Colorless; Glucose,Urine (UA) Negative (Negative); Ketones,Urine Negative (Negative); Leukocyte Esterase,Urine Negative (Negative); Mucus,Urine Rare /hpf; Nitrite,Urine Negative (Negative); PH, Urine 5.5 (5.0-8.0); Protein,Urine Trace (Negative); RBC,Urine 1 /hpf (0-5); Urobilinogen,Urine <2.0 mg/dL (<2.0); WBC,Urine 3 /hpf (0-5)
[2023-12-21 10:22] LABS: African American GFR (CKD) 47 (>60 ml/min/1.73 sqM); Anion Gap 6 mmol/L; Blood Urea Nitrogen 17 mg/dL (9-20); Calcium 8.7 mg/dL (8.4-10.2); Carbon Dioxide 24 mmol/L (22-30); Chloride 112 mmol/L (98-107); Glucose 108 mg/dL (74-99); Non-African American GFR(CKD) 41 (>60 ml/min/1.73 sqM); Potassium 3.7 mmol/L (3.5-5.1); Sodium 142 mmol/L (137-145)
--- NOTE | 2023-12-21 11:59 | P.DS ---
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 She immediately activated EMS who upon arrival noted the patient to be having multiple seizure-like episodes. Patient has no prior history of seizure and reports that he has been sober from alcohol use for the past 6 months. The patient subsequently had another seizure episode while in the emergency room for which he was given Ativan IV push. In the emergency room a CT brain was unremarkable with EKG showing sinus rhythm at [address]/T wave changes noted as reviewed by me. Laboratory evaluation was remarkable for WBC count 18.3, sodium 147, chloride 108, CO2 9, creatinine 1.08, with serum alcohol level less than 10. Patient was started on Keppra 500 mg IV BID and admitted for further workup and observation. 12/18 Patient was seen and examined with Dr. Giordano. Feeling tired but no other compliants. at bedside. Plans to obtain EEG and observe overnight. 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 and patient verbalized understanding. CBC WBC 10.9 RBC 4.27 Hct 38.6. BMP Cl 115, bicarb 21, BUN 23, Cr 2.25, glu 117. Mag 2.4. 12/19 Patient was seen and examined. No further seizures. reports poor oral intake. CBC Hg 12.8 Hct 38.7. BMP Cl 111, BUN 26, Cr 2.47, glu 117, AST 67, T. protein 6.2. Renal US no obstruction. CPK 426. 12/20 Patient was seen and examined. No complaints. Cr has improved to 1.81 after hydration overnight. Plans to discharge home today on Keppra. He will follow up with his PCP and Neurologist at the [place]. Vital signs reviewed General: non toxic, no distress, appears at stated age, normal weight Derm: no unusual rashes/lesions, warm Head: atraumatic, normocephalic, symmetric Eyes: EOMI, no lid lag, anicteric sclera ENT: Nose and ears atraumatic Neck: No cervical lymphadenopathy, trachea midline, supple Cardiovascular: good distal perfusion in all 4 extremities Lungs: breathing comfortably, no accessory muscle use Ext: muscle strength 4 out of 5 in all 4 extremities grossly, no gross muscle atrophy, no contractures, Neuro: no gross focal neuro deficits Psych: Alert, oriented x 3 Discharge Diagnosis: New onset seizure, with history of alcohol abuse (reports being sober for the past 6 months) Acute kidney injury Elevated CPK High anion gap metabolic acidosis, likely due to multiple seizures Chronic conditions: History of CVA, hypertension This complex discharge took 35 minutes to complete. Patient Condition at Discharge: Stable Plan - Discharge Summary Discharge Rx Participant: No New Discharge Prescriptions: New levETIRAcetam [Keppra] 500 mg PO Q12HR #60 tab Continue Atorvastatin [Lipitor] 40 mg PO HS hydrOXYzine HCL [Atarax] 25 mg PO BID Mometasone/Formoterol [Dulera 200 Mcg-5 Mcg Inhaler] 2 puff INHALATION RT-Q12H Nitroglycerin Sl Tabs [Nitrostat] 0.4 mg SUBLINGUAL Q5M PRN PRN Reason: Chest Pain methocarbamoL [Robaxin] 250 mg PO DAILY Albuterol Inhaler [Ventolin Hfa Inhaler] 1 puff INHALATION RT-Q6H PRN PRN Reason: Shortness Of Breath amLODIPine [Norvasc] 10 mg PO DAILY Aspirin EC [Ecotrin Low Dose] 81 mg PO DAILY Losartan Potassium [Cozaar] 100 mg PO DAILY Metoprolol Tartrate [Lopressor] 25 mg PO BID Sertraline [Zoloft] 50 mg PO HS methocarbamoL [Robaxin] 500 mg PO HS Discontinued Naproxen [EC-Naprosyn] 500 mg PO BID Discharge Medication List Albuterol Inhaler [Ventolin Hfa Inhaler] 1 puff INHALATION RT-Q6H PRN 12/18/23 [History] Aspirin EC [Ecotrin Low Dose] 81 mg PO DAILY 12/18/23 [History] Atorvastatin [Lipitor] 40 mg PO HS 12/18/23 [History] Losartan Potassium [Cozaar] 100 mg PO DAILY 12/18/23 [History] Metoprolol Tartrate [Lopressor] 25 mg PO BID 12/18/23 [History] Mometasone/Formoterol [Dulera 200 Mcg-5 Mcg Inhaler] 2 puff INHALATION RT-Q12H 12/18/23 [History] Nitroglycerin Sl Tabs [Nitrostat] 0.4 mg SUBLINGUAL Q5M PRN 12/18/23 [History] Sertraline [Zoloft] 50 mg PO HS 12/18/23 [History] amLODIPine [Norvasc] 10 mg PO DAILY 12/18/23 [History] hydrOXYzine HCL [Atarax] 25 mg PO BID 12/18/23 [History] methocarbamoL [Robaxin] 250 mg PO DAILY 12/18/23 [History] methocarbamoL [Robaxin] 500 mg PO HS 12/18/23 [History] levETIRAcetam [Keppra] 500 mg PO Q12HR #60 tab 12/21/23 [Rx] Follow up Appointment(s)/Referral(s): [facility],Clinic [Primary Care Provider] - 1-2 days Patient Instructions/Handouts: Seizure/Epilepsy Discharge Instructions & Follow-Up Activity/Diet/Wound Care/Special Instructions: [facility] of [facility]. Per [place] law, you can not drive for 6 months seizure free (you will need clearance from your Neurologist) Discharge Disposition: HOME SELF-CARE
[2023-12-21 12:39] VITALS: BP 166/88; PULSE 57; RESP 16; TEMP 97.9
[2023-12-21] MEDS: levETIRAcetam 500 MG TAB PO STA (12:48)
== END 2023-12-21 13:00 | disposition home or self-care (01) | DRG 101 ==
LOC: EC 12:41 → 3SCARD 17:44
PROVIDERS: ADMIT Student in an Organized Health Care Education/Training Program; ATTEND Student in an Organized Health Care Education/Training Program
DX: G40.901 Epilepsy, unspecified, not intractable, with status epilepticus (principal); N17.9 Acute kidney failure, unspecified; E87.20 Acidosis, unspecified; F05 Delirium due to known physiological condition; H53.462 Homonymous bilateral field defects, left side; G93.89 Other specified disorders of brain; F10.11 Alcohol abuse, in remission; F32.A Depression, unspecified; I10 Essential (primary) hypertension; H54.7 Unspecified visual loss; I69.398 Other sequelae of cerebral infarction; D72.828 Other elevated white blood cell count; Z77.090 Contact with and (suspected) exposure to asbestos; Z79.82 Long term (current) use of aspirin; Z79.1 Long term (current) use of non-steroidal anti-inflammatories (NSAID); Z79.899 Other long term (current) drug therapy; Z79.51 Long term (current) use of inhaled steroids
CPT/HCPCS: 36415; 70450; 76770; 80048; 80053; 80179; 80306; 80320; 81001; 82550; 82803; 83605; 83690; 83735; 84100; 84600; 85025; 93005; 95816; 96361; 96372; 96374; 96375; 96376; 99291

== ENCOUNTER → 2024-01-07 | Outpatient (CLI) | payer OTHER ==
--- NOTE | 2024-01-13 21:55 | P.PCN ---
Date of Procedure: 01/07/24 Operative Findings: Home sleep study testing Date of services 01/07/2024 Pertinent history A very pleasant 58-year-old male to be evaluated for sleep apnea. The patient has had a stroke and extensive workup to look for causes of his underlying CVA were essentially negative. This included cardiac and neurologic workup. 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 The patient has some mild degree of hypersomnia and his Imbler score is at 3. He has quit drinking alcohol and smoking he has gained aroPertinent physical findings Height is 5 feet and 9 inches, weight is 208 pounds and a body mass index is 30.7 Technical description The [employer] apnea link system was used to complete this home sleep study. This is a type III home sleep study. The total recording duration was 12 hours. The study started at 7 1 PM and it ended at 7:01 AM. There was a total of 11 hours and 49 minutes of flow monitoring and 11 hours and 49 minutes of oxygen saturation monitoring Results The respiratory evaluation showed a total of 64 obstructive apneas and 67 obstructive hypopneas. The resulting AHI was 11 consistent with mild obstructive sleep apnea Oxygenation analysis The baseline pulse ox when awake was 96%, average pulse ox during sleep was 93% and the lowest pulse ox was 87%. The patient was able to maintain a pulse ox above 88% throughout the sleep study. Cardiac analysis The average heart rate was 58 with a minimum heart rate of 48 and a maximum heart rate of 102 Assessment Mild obstructive sleep apnea with an AHI of 11. No associated nocturnal oxygen desaturations. Chronic loud snoring Previous history of CVA, January 2023 with a negative workup. The patient is wearing a loop recorder Hypertension Mild hypersomnia with an Imbler score of 3 Plan This is a case of mild obstructive sleep apnea. This condition has no significant bearing on his cardiovascular health or condition as the patient's disease is mild in severity and there is no significant nocturnal oxygen desaturations. Will discuss findings with the patient. Will encourage weight loss. Will continue optimizing his sleep hygiene measures. CPAP therapy can be also implemented as long as the patient is willing to undertake the treatment. As stated, no major hypersomnia or sleepiness at this point in time. A final decision will be done once the results have discussed with the patient.und 20 pounds over the past year or so. There is concern for obstructive sleep apnea. My overall suspicion is low
== END ==
LOC: 3 N SLEEP 11:00
PROVIDERS: ATTEND Internal Medicine Critical Care Medicine
DX: G47.33 Obstructive sleep apnea (adult) (pediatric) (principal); G47.10 Hypersomnia, unspecified; R06.83 Snoring; I10 Essential (primary) hypertension; F17.200 Nicotine dependence, unspecified, uncomplicated; Z86.73 Personal history of transient ischemic attack (TIA), and cerebral infarction without residual deficits; Z79.899 Other long term (current) drug therapy

== ENCOUNTER → 2024-05-05 | Outpatient (CLI) | payer OTHER ==
--- NOTE | 2024-05-05 15:09 | MR ---
EXAMINATION TYPE: MR thoracic spine wo con DATE OF EXAM: 05/05/2024 COMPARISON: CT chest 05/19/2023 HISTORY: 58-year-old male Mid back pain, Fx T7-8. S22.060S WEDGE COMPRESSION FRACTURE OF T7-T8 VERTE TECHNIQUE: Multiplanar, multisequence images of the thoracic spine were obtained without IV contrast. FINDINGS: There is a superior endplate fracture of T8 with resulting anterior wedging, 40% anterior height loss . No retropulsion into the ventral spinal canal. Some of the endplate fracture line is still visualiz ed but the degree of edema suggests a more subacute injury. Some Modic type I degenerative endplate changes noted anteriorly at T8-T9. Tiny posterior disc bulges noted at T7-T8, T8-T9, and T9-T10. No large focal disc herniation or significant spinal canal stenosis. Scattered mild facet arthropathy. No significant neuroforaminal stenosis seen. Moderate spondylotic change in the visualized cervical spine with straightening of the normal cervica l lordosis and mild spinal canal stenosis C4-C5 and C6/C7. More moderate at C5-C6. The thoracic spinal cord shows normal course, caliber, and signal intensity. Conus medullaris is norm al. Remaining vertebral body height and alignment are maintained. IMPRESSION: 1. Superior endplate fracture of T8 with resultant anterior wedging with 40% anterior height loss. Th e fracture line is still visualized but the degree of edema suggests a more subacute fracture. Clinic ally correlate. No retropulsion into the spinal canal. 2. Moderate spondylitic change in the cervical spine.
--- NOTE | 2024-05-06 23:45 | BD ---
EXAMINATION TYPE: Axial Bone Density DATE OF EXAM: 05/05/2024 CLINICAL HISTORY: 58 years old Male. ICD-10 CODE: S22.060S Wedge compression fracture of t7-t8 verte bra Height: 67.2 in Weight: 199 lbs FRAX RISK QUESTIONS: Family History (Parent hip fracture): yes father History of Fracture in Adulthood: thoracic spine fx 12/13 RISK FACTORS HISTORY OF: Spine Fracture: thoracic spine fx 12/13 EXAM MEASUREMENTS: Bone mineral densitometry was performed using the [employer] System. Bone mineral density as measured about the Lumbar spine is: ----- L1-L4(G/cm2): 1.000 T Score Values are as follows: ----- L1: -1.2 ----- L2: -1.6 ----- L3: -2.3 ----- L4: -1.2 ----- L1-L4: -1.5 Z Score Values are as follows: ----- L1: -1.5 ----- L2: -2.0 ----- L3: -2.7 ----- L4: -1.6 ----- L1-L4: -1.9 Bone mineral density baseline Bone mineral density about the R hip (g/cm2): 0.922 Bone mineral density about the L hip (g/cm2): 0.918 T Score values are as follows: -----R Neck: -1.5 -----L Neck: -1.4 -----R Total: -0.7 -----L Total: -0.7 Z Score values are as follows: -----R Neck: -1.3 -----L Neck: -1.2 -----R Total: -1.1 -----L Total: -1.1 Bone mineral density baseline FRAX%s: The graph provided illustrates a 19.8% chance for a major osteoporotic fx and a 1.6% chance f or the hips probability for fx in 10 years time. IMPRESSION: Osteopenia (T Score between -2.5 and -1). There is slightly increased risk of fracture and the patient may be considered for treatment. Re-Screen 2-5 years. NOTE: T-SCORE=SD OF THE YOUNG ADULT MEAN.
== END | disposition home or self-care (01) ==
LOC: RADMRIMAIN 09:01
PROVIDERS: ATTEND Family Medicine
DX: S22.060S Wedge compression fracture of T7-T8 vertebra, sequela (principal); R60.9 Edema, unspecified; M47.812 Spondylosis without myelopathy or radiculopathy, cervical region; M85.89 Other specified disorders of bone density and structure, multiple sites
CPT/HCPCS: 72146; 77080

== ENCOUNTER 2024-05-25 16:11 | Emergency (ER) | payer OTHER ==
[2024-05-25] MEDS ORDERED: ONDANSETRON 4 MG/2 ML VIAL ONE ×2 (17:48→21:01)
[2024-05-25] MEDS ORDERED: diphenhydrAMINE ELIXIR 25 MG/10 ML CUP ONE (17:50)
[2024-05-25] MEDS ORDERED: diphenhydrAMINE 50 MG/ML 1 ML VIAL ONE ×2 (17:51→17:53)
[2024-05-25] MEDS ORDERED: LORazepam 2 MG/ML INJ ONE (17:51)
[2024-05-25] MEDS ORDERED: SODIUM CHLORIDE 0.9% 1,000 ML BAG ONE ×2 (17:57→23:59)
[2024-05-25] MEDS ORDERED: LACOSAMIDE 50 MG TABLET ONE (18:52)
[2024-05-25] MEDS ORDERED: ONDANSETRON 4 MG ODT STARTER PACK 2 TAB BTL ONE (21:43)
--- NOTE | 2024-06-22 11:49 | CT ---
"DOMI BRYAN : 1965 CT Head without contrast Study Date: 05/25/2024 7:32 PM Comparison: None available during downtime Clinical History: 58-year-old altered mental status, confusion, seizure Technique: Examination of the head was done in axial plane without intravenous contrast. Coronal rec onstruction performed. Automated exposure control for dose reduction was used. FINDINGS: There is no evidence of acute intracranial hemorrhage, acute ischemic changes, mass, mass-effect, mid line shift, or extra-axial fluid collection. There is no hydrocephalus. There is no effacement of c erebral sulci or basal subarachnoid cisterns. Wasserman-white matter distinction is preserved. There is some encephalomalacia in the inferior right occipital lobe. Leftward nasal septal deviation. Paranasal sinuses and mastoid air cells well pneumatized. Orbits and globes are intact. IMPRESSION: 1. Encephalomalacia inferior right occipital lobe. Correlate for history of prior infarct. 2. Otherwise, no acute intracranial abnormality seen. Called to Dr. Deleon, in the ER at 7:[address] Tierney Hadley "
== END 2024-05-25 21:55 | disposition home or self-care (01) ==
LOC: EC 16:11
CPT/HCPCS: 70450; 80053; 80306; 80320; 81025; 82140; 83690; 83735; 84100; 84484; 85025; 85027; 85610; 85730; 96374; 96375; 99285

== ENCOUNTER 2025-03-24 10:20 | Observation (INO) | payer OTHER ==
[2025-03-24 10:36] VITALS: TEMP 97.8
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
[2025-03-24 11:44] LABS: Basophils # (A) 0.04 10*3/uL (0.00-0.10); Basophils % (A) 0.5 %; Eosinophils # (A) 0.13 10*3/uL (0.04-0.35); Eosinophils % (A) 1.7 %; HCT 40.3 % (39.6-50.0); HGB 13.7 g/dL (13.0-17.0); Lymphocytes # (A) 1.59 10*3/uL (0.90-5.00); Lymphocytes % (A) 20.9 %; MCH 30.2 pg (27.0-32.0); MCV 88.8 fL (80.0-97.0); Mean Platelet Volume 9.8 fL (9.5-12.2); Monocytes # (A) 0.54 10*3/uL (0.20-1.00); Monocytes % (A) 7.1 %; Neutrophils # (A) 5.27 10*3/uL (1.80-7.70); Neutrophils % (A) 69.4 %; Platelet Count 286 10*3/uL (140-440); RBC 4.54 10*6/uL (4.40-5.60); RDW 12.1 % (11.5-14.5)
[2025-03-24 11:58] LABS: ALT 26 U/L (4-49); AST 27 U/L (17-59); African American GFR (CKD) 83 (>60 ml/min/1.73 sqM); Albumin 4.4 g/dL (3.5-5.0); Alkaline Phosphatase 92 U/L (38-126); Anion Gap 8 mmol/L; Blood Urea Nitrogen 18 mg/dL (9-20); Calcium 9.6 mg/dL (8.4-10.2); Carbon Dioxide 26 mmol/L (22-30); Chloride 107 mmol/L (98-107); Creatine Kinase 114 U/L (55-170); Glucose 124 mg/dL (74-99); Non-African American GFR(CKD) 72 (>60 ml/min/1.73 sqM); Potassium 4.6 mmol/L (3.5-5.1); Sodium 141 mmol/L (137-145); Total Bilirubin 0.6 mg/dL (0.2-1.3); Total Protein 7.3 g/dL (6.3-8.2)
[2025-03-24 12:17] LABS: INR 0.9 (<1.2)
--- NOTE | 2025-03-24 12:49 | CT ---
EXAMINATION TYPE: CT brain wo con DATE OF EXAM: 03/24/2025 12:01 PM COMPARISON: None. CLINICAL INDICATION: Male, 59 years old with history of Neuro deficit, acute, stroke suspected, Neuro deficit, acute stroke suspected TECHNIQUE: CT of the brain is performed utilizing 3 mm thick sections through the posterior fossa and 3 mm thick sections through the remaining calvarium. Study is performed within 24 hours of arrival to the hospital. Contrast used: mL of , (none if empty) CT DLP: 1425.2 mGycm, Automated exposure control for dose reduction was used. FINDINGS: No abnormal hyperdensity is present to suggest an acute intracranial hemorrhage. No mass lesion is evident. No acute infarcts are evident. Ventricles and sulci are appropriate for the patient age. Paranasal sinuses and mastoid air cells within the [id number] are clear. IMPRESSION: 1. No acute intracranial process. Follow up MRI can be performed as clinically indicated. [facility], , 03/24/2025 12:46 PM
--- NOTE | 2025-03-24 13:23 | CT ---
EXAMINATION TYPE: CT abdomen pelvis w con DATE OF EXAM: 03/24/2025 12:02 PM COMPARISON: None. CLINICAL INDICATION: Male, 59 years old with history of fall, r pain, Fall 03/19/2025, right sided abhay n TECHNIQUE: Axial images were obtained from above the diaphragm to the pubic rami in the axial plane a t 5 mm thick sections. Reconstructed images are reviewed on the computer in the coronal plane. CONTRAST: 35 ml mL of Isovue 370. Study performed without Oral Contrast DLP: 804.1 mGycm, Automated exposure control for dose reduction was used. FINDINGS: Limited CT sections are obtained the lung bases. The lung bases are clear. CT ABDOMEN: Liver: Normal Spleen: Normal Pancreas: Normal Adrenal glands: The adrenal glands are normal. Gallbladder: Normal Kidneys: No masses are evident. No hydronephrosis is present. There is a 1.6 cm cyst in the lateral upper pole left kidney Delayed images were obtained through the kidneys, which remain unremarkable. Aorta: Vascular calcification is within the aorta. Inferior vena cava: Normal. CT PELVIS: Loops of bowel within the abdomen and pelvis are normal. There is some fluid within small bowel loops . No dilated loops of bowel are evident. Fecal debris is within the colon. Study is lateral contras t limiting bowel evaluation. Appendix: Normal as visualized. Urinary bladder: Normal. Genitourinary structures: Prostate appears normal size. There is some prostate calcification present. Osseous structures: No suspicious lytic or sclerotic lesions. No rib fractures are evident. Vertebral body heights are preserved. Degenerative disc changes present L5-S1. IMPRESSION: 1. No acute posttraumatic changes. [facility], , 03/24/2025 1:21 PM
--- NOTE | 2025-03-24 13:40 | CT ---
EXAMINATION TYPE: CT angio head neck DATE OF EXAM: 03/24/2025 12:34 PM COMPARISON: None. CLINICAL INDICATION: Male, 59 years old with history of Neuro deficit, acute, stroke suspected, Neuro deficit, acute stroke suspected. TECHNIQUE: CTA scan is performed with axial images are obtained, coronal and sagittal reformatted aron ges are reviewed. MIP images created on a separate workstation and submitted for review. 3-D reconstr ucted images are created on an independent workstation and reviewed. Source images are reviewed. ANDRIY CET criteria was used in interpretation of this exam? Contrast used:65 ml mL of Isovue 370 without and with IV Contrast, (none if empty) Oral contrast used: (none if empty) CT DLP: 1425.2 mGycm, Automated exposure control for dose reduction was used. FINDINGS: Carotid/Vascular Structures: There is a 3 vessel arch. Common carotid arteries bifurcate into internal and external carotid arteries without significant jesika w limiting stenosis. Minimal wall calcifications are present bifurcation. Vertebral arteries are codominant. Internal carotid arteries and vertebral arteries are patent to the skull base. Cervical of [place]: Vertebral basilar system appears normal. Posterior cerebral vasculature is unrema rkable. Internal carotid arteries bifurcate normally into A1 and M1 segments. A2 segments are normal. The anterior communicating artery is patent. The right posterior communicating artery is absent. The left posterior communicating artery is patent. IMPRESSION: 1. No flow-limiting stenosis bilateral carotid bifurcations. 2. Normal [place] of [place] [facility], , 03/24/2025 1:38 PM
--- NOTE | 2025-03-24 14:27 | XR ---
EXAMINATION TYPE: XR chest 2V DATE OF EXAM: 03/24/2025 1:42 PM COMPARISON: 06/06/2019 CLINICAL INDICATION: Male, 59 years old with history of altered mental status, TECHNIQUE: XR chest 2V view(s) obtained. FINDINGS: The heart size is normal. The pulmonary vasculature is normal. The lungs are clear. Loop recorder overlies the left chest. IMPRESSION: 1. No acute pulmonary process. [facility], , 03/24/2025 2:25 PM
[2025-03-24] MEDS: ASPIRIN 325 MG TAB PO STA (15:20)
[2025-03-24] MEDS: SODIUM CHLORIDE 0.9% 1,000 ML IV SCH (15:21)
[2025-03-24] MEDS ORDERED: ALBUTEROL NEBULIZED 2.5 MG/3 ML INHALATION PRN (16:09)
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
--- NOTE | 2025-03-24 16:33 | XR ---
EXAMINATION TYPE: XR knee complete RT DATE OF EXAM: 03/24/2025 4:28 PM COMPARISON: None. CLINICAL INDICATION: Male, 59 years old with history of pain, pain TECHNIQUE: 3 view(s) obtained. FINDINGS: No acute fracture or dislocation evident. Joint spaces are preserved. No joint effusion is evident. Follow up exams can be performed 7-10 days from acute trauma for continued pain. IMPRESSION: 1. No acute osseous abnormality right knee [facility], , 03/24/2025 4:31 PM
--- NOTE | 2025-03-24 16:42 | XR ---
EXAMINATION TYPE: XR ankle complete LT DATE OF EXAM: 03/24/2025 4:28 PM COMPARISON: None. CLINICAL INDICATION: Male, 59 years old with history of pain, pain from fall TECHNIQUE: 3 view(s) obtained. FINDINGS: Ankle mortise is intact. No acute fracture or dislocation evident. Soft tissues are normal. Calcaneal heel spurs are present Follow-up exam can be performed 7-10 days from acute trauma for continued pain. IMPRESSION: 1. No acute osseous abnormality left ankle. 2. Calcaneal heel spurs [facility], , 03/24/2025 4:39 PM
[2025-03-24] MEDS: ATORVASTATIN 80 MG TAB PO SCH (18:01)
[2025-03-24] MEDS: SERTRALINE 50 MG TAB PO SCH (18:02)
[2025-03-24] MEDS: QUEtiapine 200 MG TAB PO SCH (18:02)
[2025-03-24] MEDS: METOPROLOL TARTRATE 12.5 MG TAB PO SCH (18:02)
[2025-03-24] MEDS: LACOSAMIDE 150 MG TABLET PO SCH (19:12)
[2025-03-24] MEDS: SYMBICORT 160-4.5 MCG INHALER INHALATION SCH (19:47)
[2025-03-25] MEDS: LACOSAMIDE 50 MG TABLET PO SCH (07:42)
[2025-03-25 08:29] LABS: Chol/HDL Ratio 3.73 Ratio; LDL Cholesterol,Calculated 91.8 mg/dL (0.0-131.0)
[2025-03-25] MEDS ORDERED: ASPIRIN 325 MG TAB PO SCH (09:00)
--- NOTE | 2025-03-25 09:15 | CA ---
Transthoracic Echo Report Name: Camilla Alfredo Age: 59 Gender: M : 1965 Exam Date: 03/24/2025 16:50 Exam Location: [facility] Ht (in): 69 Wt (lb): 210 Ordering Physician: Clint Lyn DO Attending/Referring Phys: Heel Sewer Caroline Wu RDCS Procedure CPT: Indications: Thrombus Cardiac Hx: Technical Quality: Good Contrast 1: Total Dose (mL): Contrast 2: Total Dose (mL): MEASUREMENTS (Male / Female) Normal Values 2D ECHO LV Diastolic Diameter PLAX 4.1 cm 4.2 - 5.9 / 3.9 - 5.3 cm LV Systolic Diameter PLAX 2.7 cm IVS Diastolic Thickness 1.3 cm 0.6 - 1.0 / 0.6 - 0.9 cm LVPW Diastolic Thickness 1.4 cm 0.6 - 1.0 / 0.6 - 0.9 cm LV Relative Wall Thickness 0.7 RV Internal Dim ED PLAX 3.1 cm LA Systolic Diameter LX 3.6 cm 3.0 - 4.0 / 2.7 - 3.8 cm LV Diastolic Volume MOD BP 94.4 cm??? 67 - 155 / 56 - 104 cm??? LV Systolic Volume MOD BP 35.2 cm??? 22 - 58 / 19 - 49 cm??? LV Ejection Fraction MOD BP 62.7 % >= 55 % LV Cardiac Index MOD BP 1628.8 cm???/min???m??? LV Diastolic Volume MOD 4C 94.1 cm??? LV Systolic Volume MOD 4C 28.4 cm??? LV Ejection Fraction MOD 4C 69.8 % LV Cardiac Index MOD 4C 1806.7 cm???/min???m??? LV Diastolic Length 4C 8.1 cm LV Systolic Length 4C 6.1 cm LV Diastolic Volume MOD 2C 90.1 cm??? LV Systolic Volume MOD 2C 35.8 cm??? LV Ejection Fraction MOD 2C 60.3 % LV Cardiac Index MOD 2C 1494.9 cm???/min???m??? LV Diastolic Length 2C 8.6 cm LV Systolic Length 2C 7.5 cm LA Volume 60.3 cm??? 18 - 58 / 22 - 52 cm??? LA Volume Index 27.6 cm???/m??? 16 - 28 cm???/m??? M-MODE Aortic Root Diameter MM 3.3 cm AV Cusp Separation MM 2.0 cm DOPPLER AV Peak Velocity 148.7 cm/s AV Peak Gradient 8.8 mmHg MV Area PHT 2.8 cm??? Mitral E Point Velocity 84.2 cm/s Mitral A Point Velocity 96.6 cm/s Mitral E to A Ratio 0.9 MV Deceleration Time 270.0 ms FINDINGS Left Ventricle Left ventricular ejection fraction is estimated at 55-60 %. Left ventricular cavity size normal. Mildly increased septal wall thickness. No obvious regional wall motion abnormalities. Right Ventricle Normal right ventricular size. Unable to estimate the right ventricular systolic pressure. Right Atrium Normal right atrial size. No right atrial thrombus or mass seen. Left Atrium Mildly increased left atrial volume. No left atrial thrombus or mass present. Mitral Valve Structurally normal mitral valve. No mitral stenosis, regurgitation or prolapse. Aortic Valve Trileaflet aortic valve. No aortic valve stenosis or regurgitation. Tricuspid Valve Structurally normal tricuspid valve. No tricuspid stenosis, regurgitation or prolapse. Pulmonic Valve Pulmonic valve not well visualized. No pulmonic regurgitation. Pericardium No pericardial effusion. Aorta Normal size aortic root and proximal ascending aorta. CONCLUSIONS LVEF 55 to 60% No obvious regional wall motion abnormality Mild concentric LVH No significant valvular dysfunction Mild left atrial dilatation Normal RV size systolic function Previewed by: Dr Meliton Walton (Electronically Signed) Final Date: 25 March 2025 09:14
[2025-03-25] MEDS: ASPIRIN 81 MG PO SCH (09:27)
[2025-03-25 09:35] VITALS: BP 139/90; PULSE 70; RESP 18
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
--- NOTE | 2025-03-25 15:01 | P.DS ---
Providers Date of admission: 03/24/25 15:09 Expected date of discharge: 03/25/25 Attending physician: Joe Arzate Consults: 03/24/25 15:08 Consult Physician Urgent Consulting Provider: Gigi Giordano Consult Reason/Comments: Balance issues, concern for TIA Do you want consulting provider notified?: Yes [facility] [place] [facility] Course: Patient left AMA. Plan - Discharge Summary New Discharge Prescriptions: No Action Atorvastatin [Lipitor] 80 mg PO HS@1830 hydrOXYzine HCL [Atarax] 25 mg PO Q6H PRN PRN Reason: Anxiety Lacosamide [Vimpat] 150 mg PO BID@629,1829 tadalafiL 5 mg PO DAILY PRN PRN Reason: E.D. QUEtiapine [SEROquel] 200 mg PO HS@183 Cholecalciferol (Vitamin D3) [Vitamin D3 (50 Mcg = 2000 Iu)] 50 mcg PO DAILY@0630 Albuterol Inhaler [Ventolin Hfa Inhaler] 1 puff INHALATION RT-Q6H PRN PRN Reason: Shortness Of Breath amLODIPine [Norvasc] 10 mg PO DAILY@0630 Aspirin EC [Ecotrin Low Dose] 81 mg PO DAILY@629 Losartan Potassium [Cozaar] 100 mg PO DAILY@629 Metoprolol Tartrate [Lopressor] 12.5 mg PO BID@629,1829 Sertraline [Zoloft] 150 mg PO HS@183 Calcium Carbonate [Calcium] 600 mg PO DAILY@0630 Fluticasone Propion/Salmeterol [Fluticasone-Salmeterol 500-50] 1 puff INHALATION RT-BID Discharge Medication List Albuterol Inhaler [Ventolin Hfa Inhaler] 1 puff INHALATION RT-Q6H PRN 12/18/23 [History] Aspirin EC [Ecotrin Low Dose] 81 mg PO DAILY@62912/18/23 [History] Atorvastatin [Lipitor] 80 mg PO HS@182912/18/23 [History] Losartan Potassium [Cozaar] 100 mg PO DAILY@30 12/18/23 [History] Metoprolol Tartrate [Lopressor] 12.5 mg PO BID@629,182912/18/23 [History] Sertraline [Zoloft] 150 mg PO HS@182912/18/23 [History] amLODIPine [Norvasc] 10 mg PO DAILY@62912/18/23 [History] hydrOXYzine HCL [Atarax] 25 mg PO Q6H PRN 12/18/23 [History] Calcium Carbonate [Calcium] 600 mg PO DAILY@62903/24/25 [History] Cholecalciferol (Vitamin D3) [Vitamin D3 (50 Mcg = 2000 Iu)] 50 mcg PO DAILY@62903/24/25 [History] Fluticasone Propion/Salmeterol [Fluticasone-Salmeterol 500-50] 1 puff INHALATION RT-BID 03/24/25 [History] Lacosamide [Vimpat] 150 mg PO BID@629,182903/24/25 [History] QUEtiapine [SEROquel] 200 mg PO HS@182903/24/25 [History] tadalafiL 5 mg PO DAILY PRN 03/24/25 [History] Follow up Appointment(s)/Referral(s): Pj Guadarrama DO [Primary Care Provider] - 1-2 days Discharge Disposition: LEFT AGAINST MEDICAL ADVICE
== END 2025-03-25 10:48 | disposition left against medical advice (07) ==
LOC: EC 10:20 → 6NMEDSUR 15:09
PROVIDERS: ADMIT Student in an Organized Health Care Education/Training Program; ATTEND Student in an Organized Health Care Education/Training Program
DX: R20.0 Anesthesia of skin (principal); R42 Dizziness and giddiness; R20.2 Paresthesia of skin; R51.9 Headache, unspecified; R00.1 Bradycardia, unspecified; I10 Essential (primary) hypertension; I69.398 Other sequelae of cerebral infarction; H53.8 Other visual disturbances; I25.10 Atherosclerotic heart disease of native coronary artery without angina pectoris; J44.9 Chronic obstructive pulmonary disease, unspecified; G40.909 Epilepsy, unspecified, not intractable, without status epilepticus; S39.91XA Unspecified injury of abdomen, initial encounter; M25.561 Pain in right knee; M25.572 Pain in left ankle and joints of left foot; W19.XXXA Unspecified fall, initial encounter; F41.9 Anxiety disorder, unspecified; F32.A Depression, unspecified; Z79.82 Long term (current) use of aspirin; Z79.51 Long term (current) use of inhaled steroids; Z79.899 Other long term (current) drug therapy; Z87.828 Personal history of other (healed) physical injury and trauma; Z53.29 Procedure and treatment not carried out because of patient's decision for other reasons; Z91.81 History of falling
CPT/HCPCS: 96360; 96361 ×2; 99285; 36415; 94640 ×2; 94760; 93005; 93306; 80061; 80053; 84443; 82607; 82550; 85025; 85610; 85730; 83036; 73562; 73610; 71046; 70496; 70450; 70498; 74177; G0378 ×2; Q9967